=== PATIENT | male | born 1955 | race Caucasian/White ===

== ENCOUNTER 2017-07-19 06:58 | Day surgery (SDC) | payer MEDICARE, OTHER ==
[~2017-07-19] VITALS: Ht 177.8 cm; Wt 64.5 kg
[2017-07-19] MEDS ORDERED: SODIUM CHLORIDE 0.9% 1,000 ML IV ONE ×2 (07:00→07:05)
[2017-07-19] MEDS ORDERED: ALBU8.5H8 IH (08:14)
[2017-07-19] MEDS ORDERED: DARU800T PO (08:14)
[2017-07-19] MEDS ORDERED: OXYC5 PO (08:14)
[2017-07-19] MEDS ORDERED: FLUT16H NASAL ×2 (08:14)
[2017-07-19] MEDS ORDERED: RITO100T PO (08:14)
[2017-07-19] MEDS ORDERED: ADV500 IH (08:14)
[2017-07-19] MEDS ORDERED: GABA-531 PO (08:14)
[2017-07-19] MEDS ORDERED: PANT40TA25 PO (08:14)
[2017-07-19] MEDS ORDERED: PRED10 PO (08:14)
[2017-07-19] MEDS ORDERED: TIOT185 IH (08:14)
[2017-07-19] MEDS ORDERED: TRUVT PO (08:14)
[2017-07-19] MEDS ORDERED: OLAN10TA3 PO (08:14)
[2017-07-19] MEDS ORDERED: LEVO500 PO (08:14)
[2017-07-19] MEDS ORDERED: ATOR20TA86 PO (08:14)
[2017-07-19] MEDS ORDERED: TAMS0.4C32 PO (08:14)
[2017-07-19] MEDS ORDERED: TEMA15CA PO (08:14)
[2017-07-19] MEDS ORDERED: OXYC20 PO (08:14)
[2017-07-19] MEDS ORDERED: TIOT4MIS5 IH (08:14)
[2017-07-19] MEDS ORDERED: DIAZ10 PO (08:14)
[2017-07-19] MEDS ORDERED: ASPI-1182 PO (08:14)
[2017-07-19] MEDS ORDERED: MONT10TA21 PO (08:14)
[2017-07-19] MEDS ORDERED: FentaNYL CITRATE-PF 100 MCG/2 ML VIAL ONE (08:15)
[2017-07-19] MEDS ORDERED: MIDAZOLAM HCL 2 MG/2 ML VIAL ONE (08:15)
[2017-07-19] MEDS ORDERED: MethylPREDNISolone SOD SUCC 125 MG/2 ML VIAL IVP ONE (09:15)
[2017-07-19] MEDS ORDERED: MethylPREDNISolone SOD SUCC 125 MG/2 ML VIAL ONE (09:34)
[2017-07-19] MEDS ORDERED: LIDOCAINE HCL 4% 50 ML SOLUTION ONE (18:10)
[2017-07-19] MEDS ORDERED: LIDOCAINE HCL 2% 30 ML JELLY ONE (18:10)
[2017-07-19] MEDS ORDERED: BENZOCAINE 20% 50 MCG/SPRAY 57 GM ONE (18:10)
[2017-07-19] MEDS ORDERED: OXYGEN THERAPY IH SCH (20:00)
== END 2017-07-19 10:20 | disposition home or self-care (01) ==
LOC: SURGERY 06:58
PROVIDERS: ATTEND Internal Medicine Critical Care Medicine
DX: J38.4 Edema of larynx (principal); B37.0 Candidal stomatitis; F17.210 Nicotine dependence, cigarettes, uncomplicated; B19.20 Unspecified viral hepatitis C without hepatic coma; Z21 Asymptomatic human immunodeficiency virus [HIV] infection status; Z79.82 Long term (current) use of aspirin; Z90.89 Acquired absence of other organs; Z85.118 Personal history of other malignant neoplasm of bronchus and lung; Z79.899 Other long term (current) drug therapy
CPT/HCPCS: 31623; 31624; 71045; 87015; 87070; 87147; 87205; 87220; 88108; 88312; J2250; J2930; J3010; J7030